=== PATIENT | female | born 1980 | race Caucasian/White ===

== ENCOUNTER 2020-10-16 20:36 | Emergency (ER) | payer BC ==
[2020-10-16] MEDS ORDERED: Ketorolac 30 MG/ML SDV IVPUSH ONE (21:00)
[2020-10-16] MEDS ORDERED: Sodium Chloride 0.9% 1,000 ML IV SCH (21:00)
[2020-10-16] MEDS ORDERED: LORazepam 2 MG/ML SDV IVPUSH ONE (21:00)
[2020-10-16] MEDS ORDERED: Ondansetron 4 MG/2 ML SDV IVPUSH ONE (21:04)
--- NOTE | 2020-10-16 21:13 | EDM.PDOC ---
ED HPI GENERAL MEDICAL PROBLEM - General Chief Complaint: Headache Stated Complaint: DEHYDRATION, MIGRAINE/ OB BOAT ALL DAY Time Seen by Provider: 10/16/20 20:55 Source of Information: Reports: Patient History Limitations: Reports: No Limitations - History of Present Illness INITIAL COMMENTS - FREE TEXT/NARRATIVE: This 40 yo female patient reports to the ED with a migraine headache. The patient reports her headache has been present all day, but got worse this evening at about 1830. The patient reports once her headache got worse, she started to have increased anxiety. The patient denies any trauma and denies any alcohol use. The patient reports she has been drinking water all day. The patient reports a history of headaches, but has not had one this bad in "years". Onset: Today Duration: Constant, Getting Worse Location: Reports: Head Quality: Reports: Ache, Sharp, Stabbing Severity: Severe Improves with: Reports: None Worsens with: Reports: None Context: Reports: Other Associated Symptoms: Reports: Headaches, Nausea/Vomiting - Related Data Allergies Allergy/AdvReac Type Severity Reaction Status Date / Time No Known Allergies Allergy Verified 10/16/20 20:53 Home Meds: Home Meds Eletriptan Hydrobromide [Relpax] 20 mg PO DAILY PRN 10/16/20 [History] Escitalopram Oxalate [Lexapro] 20 mg PO ASDIRECTED 10/16/20 [History] LORazepam [Ativan] 0.5 mg PO ASDIRECTED PRN 10/16/20 [History] Metoprolol Tartrate 50 mg PO DAILY 10/16/20 [History] hydroCHLOROthiazide [Hydrochlorothiazide] 12.5 mg PO ASDIRECTED 10/16/20 [History] Past Medical History HEENT History: Reports: None Cardiovascular History: Reports: Hypertension Respiratory History: Reports: None Gastrointestinal History: Reports: None Genitourinary History: Reports: None PHERESIS NURSE History: Reports: None Musculoskeletal History: Reports: None Neurological History: Reports: None Psychiatric History: Reports: Anxiety, Depression Endocrine/Metabolic History: Reports: None Hematologic History: Reports: None Immunologic History: Reports: None Oncologic (Cancer) History: Reports: None Dermatologic History: Reports: None - Past Surgical History Head Surgeries/Procedures: Reports: None Social & Family History - Tobacco Use Tobacco Use Status *Q: Never Tobacco User - Recreational Drug Use Recreational Drug Use: No ED ROS GENERAL - Review of Systems Review Of Systems: Comprehensive ROS is negative, except as noted in HPI. - Physical Exam Exam: See Below Exam Limited By: No Limitations General Appearance: Alert, WD/WN, Moderate Distress Eye Exam: Bilateral Eye: EOMI, Normal Inspection, PERRL Ears: Normal External Exam, Normal Canal, Hearing Grossly Normal, Normal TMs Nose: Normal Inspection, Normal Mucosa, No Blood Throat/Mouth: Normal Inspection, Normal Lips, Normal Teeth, Normal Gums, Normal Oropharynx, Normal Voice, No Airway Compromise Head Exam: Atraumatic, Normocephalic Neck: Normal Inspection, Supple, Non-Tender, Full Range of Motion Respiratory/Chest: No Respiratory Distress, Lungs Clear, Normal Breath Sounds, No Accessory Muscle Use, Chest Non-Tender Cardiovascular: Normal Peripheral Pulses, Regular Rate, Rhythm, No Edema, No Gallop, No JVD, No Murmur, No Rub GI/Abdominal: Normal Bowel Sounds, Soft, Non-Tender, No Organomegaly, No Distention, No Abnormal Bruit, No Mass (Female) Exam: Deferred Rectal (Female) Exam: Deferred Neuro Exam (Abbreviated): Alert, Oriented, CN II-XII Intact, Normal Cognition, Normal Gait, Normal Reflexes, No Motor/Sensory Deficits Back Exam: Normal Inspection, Full Range of Motion, NT Extremities: Normal Inspection, Normal Range of Motion, Non-Tender, No Pedal Edema, Normal Capillary Refill Psychiatric: Normal Affect, Normal Mood Skin Exam: Warm, Dry, Intact, Normal Color, No Rash Course - Vital Signs Last Recorded V/S: Last Vital Signs Temp 98 F 10/16/20 20:53 Pulse 81 10/16/20 20:53 Resp 20 10/16/20 20:53 BP 151/89 H 10/16/20 20:53 Pulse Ox 97 10/16/20 20:53 - Orders/Labs/Meds Orders: Active Orders 24 hr Category Date Time Status Sodium Chloride 0.9% [Normal Saline] 1,000 ml Med 10/16/20 21:00 Ordered IV ASDIRECTED Medication Orders Sodium Chloride (Normal Saline) 1,000 mls @ 999 mls/hr IV ASDIRECTED TOMY Last Admin: 10/16/20 21:14 Dose: 999 mls/hr Documented by: Meds: Medications Generic Name Dose Route Start Last Admin Trade Name Freq PRN Reason Stop Dose Admin Sodium Chloride 1,000 mls @ 999 mls/hr 10/16/20 21:00 10/16/20 21:14 Normal Saline IV 999 mls/hr ASDIRECTED TOMY Administration Discontinued Medications Generic Name Dose Route Start Last Admin Trade Name Freq PRN Reason Stop Dose Admin Ketorolac Tromethamine 30 mg 10/16/20 21:00 10/16/20 21:16 Ketorolac 30 Mg/Ml Sdv IVPUSH 10/16/20 21:01 30 mg ONETIME ONE Administration Lorazepam 0.5 mg 10/16/20 21:00 10/16/20 21:17 Lorazepam 2 Mg/Ml Sdv IVPUSH 10/16/20 21:01 0.5 mg ONETIME ONE Administration Ondansetron HCl 4 mg 10/16/20 21:04 10/16/20 21:15 Ondansetron 4 Mg/2 Ml Sdv IVPUSH 10/16/20 21:05 4 mg ONETIME ONE Administration Departure - Departure Time of Disposition: 21:49 Disposition: Home, Self-Care 01 Condition: Fair Clinical Impression: Migraine - Discharge Information *PRESCRIPTION DRUG MONITORING PROGRAM REVIEWED*: Not Applicable *COPY OF PRESCRIPTION DRUG MONITORING REPORT IN PATIENT ELLEN: Not Applicable Instructions: Migraine Headache, [id number] Forms: ED Department Discharge Care Plan Goals: The patient was advised of the examination results during the visit. The patient was given IV fluids, IV Zofran, IV Ativan and IV Toradol while in the ED. The patient was encouraged to increase her oral fluid intake over the next 48 hours. The patient may take Tylenol or ibuprofen as directed for temporary symptom relief. If the patient has any additional symptoms or concerns, the patient should either return to the emergency department or visit her primary care facility. Sepsis Event Note (ED) - Focused Exam Vital Signs: Vital Signs Temp Pulse Resp BP Pulse Ox 10/16/20 20:53 98 F 81 20 151/89 H 97 - My Orders Last 24 Hours: My Active Orders 10/16/20 21:00 Sodium Chloride 0.9% [Normal Saline] 1,000 ml IV ASDIRECTED - Assessment/Plan Last 24 Hours: My Active Orders 10/16/20 21:00 Sodium Chloride 0.9% [Normal Saline] 1,000 ml IV ASDIRECTED
== END 2020-10-16 21:58 | disposition home or self-care (01) ==
LOC: DL.ED 20:36
DX: G43.909 Migraine, unspecified, not intractable, without status migrainosus (principal); I10 Essential (primary) hypertension; Z79.899 Other long term (current) drug therapy
CPT/HCPCS: 96374; 96375; 99283; J1885; J2060; J2405; J7030